=== PATIENT | male | born 1950 | race Caucasian/White ===

== ENCOUNTER → 2024-04-11 07:01 | Outpatient (REF) | payer OTHER, SELFPAY | LOC: HWRCS 07:01 | PROVIDERS: ATTENDING PHYSICIAN Internal Medicine Cardiovascular Disease; FAMILY PHYSICIAN Family Medicine | DX: R01.1 Cardiac murmur, unspecified (principal); E78.5 Hyperlipidemia, unspecified | CPT/HCPCS: 93306 ==

== ENCOUNTER 2025-01-10 16:31 | Outpatient (RCR) | payer OTHER, SELFPAY | END 2025-01-10 23:59 | disposition home or self-care (01) | LOC: RPT 16:31 | PROVIDERS: ATTENDING PHYSICIAN Student in an Organized Health Care Education/Training Program; FAMILY PHYSICIAN Family Medicine | DX: M76.72 Peroneal tendinitis, left leg (principal); M62.81 Muscle weakness (generalized); R26.89 Other abnormalities of gait and mobility; Z73.6 Limitation of activities due to disability | CPT/HCPCS: 36140; 36620; 97110; 97162; 97535; C1769; C1894 ==

== ENCOUNTER → 2025-04-10 07:23 | Outpatient (REF) | payer OTHER, SELFPAY | LOC: RCS 07:23 | PROVIDERS: ATTENDING PHYSICIAN Internal Medicine Cardiovascular Disease; FAMILY PHYSICIAN Family Medicine | DX: R01.1 Cardiac murmur, unspecified (principal); E78.5 Hyperlipidemia, unspecified | CPT/HCPCS: 93306 ==